=== PATIENT | female | born 1970 | race Caucasian/White ===

== ENCOUNTER 2019-03-13 07:00 | Day surgery (SDC) | payer OTHER ==
[~2019-03-13] VITALS: Ht 160 cm; Wt 81.7 kg
--- NOTE | ~2019-03-13 | OR ---
[facility] [address] [place], [place] [address] Draft DATE OF OPERATION: 03/13/2019 SURGEON: Jocy Lee MD PREOPERATIVE DIAGNOSIS: Lateral meniscus tear, right knee. POSTOPERATIVE DIAGNOSIS: Lateral meniscus tear, right knee. PROCEDURE PERFORMED: Right knee arthroscopy with partial lateral meniscectomy. BAG CUTTER: Eleanor Rand PA-C. ANESTHESIA: General. BLOOD LOSS: Minimal. TOURNIQUET TIME: Zero. BRIEF HISTORY: Murphy is a 48-year-old female with pain and locking in her knee. She had an MRI consistent with lateral meniscus tear. Risks and benefits of operative treatment discussed with her and she elected to proceed. Once consent was obtained, she was taken to the operating room. After adequate anesthesia, she was placed on operating room table, left leg was flexed, abducted, and externally rotated on a well-padded leg art. The right was placed in well-padded proximal leg art with no tourniquet. The portal sites were pre-injected using 0.25% Marcaine with epinephrine under alcohol prep. The leg was then prepped and draped in a standard sterile fashion. Standard inferolateral and superolateral portals were made and the scope was introduced in the knee. 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 There was a bit of lateral tilt. Medial and lateral gutters were clear. ACL and PCL were intact. Medial PATIENT NAME: MURPHY FAY OPERATIVE REPORT DATE OF : 70 REPORT #: [id number] PHYSICIAN: JOCY LEE MD PCP: JEREMY TOLEDO REPORT IS CONFIDENTIAL AND NOT TO BE RELEASED WITHOUT AUTHORIZATION [facility] [address] [place], [place] [address], [place] [address] Draft compartment showed no meniscus tear. 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 There were several spots on the medial femoral condyle. Grade 1 disease on the tibial side. No chondral disease was noted on the lateral compartment. There was a radial tear in the midbody of the lateral meniscus with some degeneration on the undersurface. DESCRIPTION OF OPERATION: Standard inferomedial portal was made after localization using a spinal needle. The straight and curved biters were then used to trim the meniscus tear back to a stable rim including all the inferior degenerative portions. All debris was evacuated. The chondral flaps of the medial femoral condyle were removed. The scope was then withdrawn. Portals closed with 3-0 nylon. The knee was injected with 60 mg of Toradol at the end of the case. The wounds were dressed with Adaptic, ABD, and Joe wrap. She tolerated the procedure well. All sponge, needle, and instrument counts were correct. Jocy Lee MD BA/FINNL /[id number] Copies: ~ PATIENT NAME: MURPHY FAY OPERATIVE REPORT DATE OF : 70 REPORT #: [id number] PHYSICIAN: JOCY LEE MD PCP: JEREMY TOLEDO REPORT IS CONFIDENTIAL AND NOT TO BE RELEASED WITHOUT AUTHORIZATION
[~2019-03-13 07:00] MED LIST: EVAMIST8.1 ML TD; OXYCODON-ACETA1 EAC2 PO
[2019-03-13] MEDS ORDERED: WOMEN'S DAILY1 EACH PO (07:18)
[2019-03-13] MEDS ORDERED: HYDROCODON-ACE1 EA11 PO (09:38)
[2019-03-13] MEDS ORDERED: DICLOFENAC SODI75 MG PO (09:39)
--- NOTE | 2019-03-13 09:40 | NUR ---
03/13/19 0940 RamosMerary 09- PT ARRIVES TO PACU FROM OR ON 12 L VIS MASK. PT AWAKE AND ANSWERS QUESTIONS APPROPRIATELY. DENIES PAIN/NAUSEA. VSS. SATS 99 ON 12 L VUA MASK. CMS IN RLE INTACT. DRESSING C/D/I. PT HAD GENERAL ANESTHESIA
== END 2019-03-13 11:50 | disposition home or self-care (01) ==
LOC: OPS 07:00 → DS 07:00 → OPS 08:00
PROVIDERS: Specialist
PROC: 0SBC4ZZ Excision of Right Knee Joint, Percutaneous Endoscopic Approach (ICD-10-PCS; principal; 2019-03-13 08:00)
DX: M23.361 Other meniscus derangements, other lateral meniscus, right knee (principal); M94.261 Chondromalacia, right knee; F40.240 Claustrophobia; Z88.2 Allergy status to sulfonamides; Z79.899 Other long term (current) drug therapy
CPT/HCPCS: 01400; J0690; J1100; J1885; J2250; J2405; J2704; J3010; J7120

== ENCOUNTER 2025-06-16 08:56 | Day surgery (SDC) | payer OTHER ==
[~2025-06-16] VITALS: Ht 160 cm; Wt 76.0 kg
[~2025-06-16 08:56] MED LIST changes: +CEFAZOLIN SODIUM 2 GM in SODIUM CHLORIDE 0.9% 100 ML IV SCH; +DICLOFENAC SODI75 MG PO; +HYDROCODON-ACE1 EA11 PO; +IBLOOD GLUCOSE TEST STRIP 1 EA TEST VI PRN; +LACTATED RINGER'S 1,000 ML IV SCH; +LIDOCAINE HCL 1% 5 ML SDV INJ ONE; +WOMEN'S DAILY1 EACH PO
[2025-06-16] MEDS ORDERED: BUPIVACAINE HCL 0.25% 50 ML MDV ONE (09:13)
[2025-06-16 09:14] VITALS: BP 125/66
[2025-06-16] MEDS ORDERED: LIDOCAINE HCL 1% 30 ML SDV ONE (11:00)
[2025-06-16] MEDS ORDERED: HYDROCODONE/ACETA 5/325 TAB PO PRN (11:00)
[2025-06-16] MEDS ORDERED: MIDAZOLAM HCL 2 MG/2 ML VIAL ONE (11:13)
[2025-06-16] MEDS ORDERED: HYDROCODON-ACE1 EA10 PO (11:37)
--- NOTE | 2025-06-16 11:51 | NUR ---
06/16/25 1151 Em Price 1140-PT ARRIVES TO PACU, VIA STRETCHER, PT RESTING SEMI FOWLERS, PT IS A+O X4, DENIES PAIN OR NAUSEA, VSS ON 6L VIA OM. RR EVEN AND UNLABORED. PT'S RT WRIST ELEVATED ON PILLOW AND ICE PACK APPLIED. 1145-PT TITRATED TO RA, VS REMAIN STABLE. AT BEDSIDE TO DISCUSS PROCEDURE RESULTS AND PLAN OF CARE W/ PT, ALL QUESTIONS ANSWERED.
[2025-06-16 12:17] VITALS: BP 123/76
--- NOTE | 2025-06-23 06:48 | OR ---
[facility] [address] [place], [place] [address] Signed DATE OF OPERATION: 06/16/2025 SURGEON: Jocy Lee MD PREOPERATIVE DIAGNOSIS: Trigger finger, right thumb. POSTOPERATIVE DIAGNOSIS: Trigger finger, right thumb. PROCEDURE PERFORMED: Right trigger thumb release. [employer] SALESPERSON: Eleanor Rand PA-C. ANESTHESIA: Tommie block. TOURNIQUET TIME: 20 minutes. BRIEF HISTORY: Murphy is a 54-year-old female with a locked trigger thumb on the right. This was painful and she had inability to use her hand effectively. Risks and benefits of operative treatment were discussed with her and she elected to proceed. DESCRIPTION OF PROCEDURE: Once consent was obtained, she was taken to the operating room. After adequate anesthesia, she was left on the day surgery bed, hand table was brought in. The arm was prepped and draped in a standard sterile fashion. A 1 cm incision was made in the thumb crease, carried through skin and subcutaneous tissue and directly down to the flexor tendon sheath. The digital nerve was carefully retracted and protected. The A1 chi was then dissected free of overlying soft tissue. Under direct loupe magnification, it was released using tenotomy scissors. The patient was asked to move her thumb. She could fully flex, full extend with no triggering or locking. The wound was copiously irrigated with normal saline, closed with 3-0 nylon and injected with 4 mL of 0.25% plain Marcaine. The wound was then dressed with bacitracin, Adaptic, 4 x 8s, and gauze. She tolerated the procedure well. All sponge, needle, and instrument counts were correct. Electronically Signed By: JOCY LEE MD 06/23/25 0648 PATIENT NAME: MURPHY FAY OPERATIVE REPORT DATE OF : 70 REPORT #: [id number] PHYSICIAN: JOCY LEE MD PCP: JEREMY TOLEDO REPORT IS CONFIDENTIAL AND NOT TO BE RELEASED WITHOUT AUTHORIZATION [address] [place], [place] [address] Signed Jocy Lee MD BA/MODL /[id number] Copies: ~ Electronically Signed By: JOCY LEE MD 06/23/25 0648 PATIENT NAME: MURPHY FAY OPERATIVE REPORT DATE OF : 70 REPORT #: [id number] PHYSICIAN: JOCY LEE MD PCP: JEREMY TOLEDO REPORT IS CONFIDENTIAL AND NOT TO BE RELEASED WITHOUT AUTHORIZATION
== END 2025-06-16 12:30 | disposition home or self-care (01) ==
LOC: DS 08:56
PROVIDERS: ATTEND Specialist
PROC: 0LN70ZZ Release Right Hand Tendon, Open Approach (ICD-10-PCS; principal; 2025-06-16 10:10)
DX: M65.311 Trigger thumb, right thumb (principal); Z88.2 Allergy status to sulfonamides; Z88.8 Allergy status to other drugs, medicaments and biological substances
CPT/HCPCS: 01810; J0688; J2250; J2405; J2704; J7121